=== PATIENT | male | born 1995 | race African-American/Black ===

== ENCOUNTER 2016-11-05 18:04 | Emergency (ER) | payer SELFPAY ==
--- NOTE | 2016-11-23 15:23 | ER ---
ADMIT: 11/05/2016 RM/LOC: ER [facility] MR#: [id number] [address] [id number] [place] [address] Emergency Room Report SEX: M AGE: 21 : 1995 DATE: 11/05/2016 ADDENDUM: This is an intoxicated 21-year-old black male, brought in by police. He is a little hostile. He is in handcuffs. He has no acute findings except he is obviously intoxicated. He is released to [facility] for their custody and protection. CONDITION ON DISCHARGE: Fair. Emmanuel Pacheco MD/ bisi JOB #: [id number] CC: Emmanuel Pacheco MD, Attending Physician
== END 2016-11-05 18:30 | disposition home or self-care (01) ==
LOC: ER 18:04
DX: F10.129 Alcohol abuse with intoxication, unspecified (principal)

== ENCOUNTER 2017-04-17 22:24 | Emergency (ER) | payer SELFPAY | END 2017-04-17 23:00 | DX: F10.129 Alcohol abuse with intoxication, unspecified (principal); Z02.89 Encounter for other administrative examinations; Z88.8 Allergy status to other drugs, medicaments and biological substances; Z98.890 Other specified postprocedural states ==